=== PATIENT | female | born 1970 | race Caucasian/White ===

== ENCOUNTER 2017-04-20 14:32 | Emergency (ER) | payer BC ==
[~2017-04-20] VITALS: Ht 162.6 cm; Wt 122.5 kg
--- OUTSIDE RECORDS SUMMARY | 2017-04-20 14:37 | External Medical Summary Rpt | CCD ---
Author Author , BOOM NUR Address Unknown Phone [email or web address] Purpose Continuity of Care Document - 01-31-2017 through 2016 Results Labs Lab Lab Date Result Refere Interp Status Commen Order Detail nces retati t Range on Bacteria Ur Cult (04-11-2017 15:44) Bacteri [id number] complet a XXX 017 07 ed Anaerob 15:44 Escheri e+Aerob edith e Cult coli (organi sm) SCT ECOL ESCHERI EDITH COLI L CC XXX NOTAP complet VC-aCnc 017 NOT ed 15:44 APPLICA BLE L SPECIME URNG complet N 017 STERLING ed CONTAIN 15:44 TOP ER COLLECT INFO: ION TUBE FOR URINE L Hgb A1c MFr Bld (01-31-2017 13:59) Hgb A1c 5.8 % 4.7-6.0 complet MFr 017 ed Bld 13:59 TSH SerPl DL<=0.005 mIU/L-aCnc (01-31-2017 13:59) TSH 1.39 0.4-4.2 complet SerPl 017 uIU/mL ed DL<=0.0 13:59 05 mIU/L-a Cnc
--- OUTSIDE RECORDS SUMMARY | 2017-04-20 14:37 | External Medical Summary Rpt | CCD ---
Author Author , BOOM NUR Address Unknown Phone [email or web address] Purpose Continuity of Care Document - 01-31-2017 through 2016 Results Labs Lab Lab Date Result Refere Interp Status Commen Order Detail nces retati t Range on Bacteria Ur Cult (04-11-2017 15:44) Bacteri [id number] complet a XXX 017 07 ed Anaerob [...]
--- OUTSIDE RECORDS SUMMARY | 2017-04-20 14:38 | External Medical Summary Rpt | CCD ---
Author Author [employer] Organization [employer] Address Unknown Phone Unavailable Purpose Continuity of Care Document - through 2016
--- OUTSIDE RECORDS SUMMARY | 2017-04-20 14:38 | External Medical Summary Rpt | CCD ---
Author Author , BOOM NUR Address Unknown Phone [email or web address] Immunization Name Date Rout CVX Reac Dose Comm Prov Is Faci e tion ent ider Refu lity Give sed n Infl 11-0 Intr 150 0.5 Hist [facility] No [facility] uenz 3-20 amus mL oric 1 1 a 17 cula al Quad r Info Inj rmat ion - Sour ce Unsp ecif ied
--- OUTSIDE RECORDS SUMMARY | 2017-04-20 14:38 | External Medical Summary Rpt | CCD ---
Author Author , BOOM NUR Address Unknown Phone [email or web address] Immunization Name Date Rout CVX Reac Dose Comm Prov Is Faci e tion ent ider Refu lity Give sed n Infl 11-0 Intr 150 0.5 Hist [facility] No [facility] uenz 3-20 amus mL oric 1 1 a 17 cula al Quad r Info Inj rmat ion - Sour ce Unsp ecif ied
--- OUTSIDE RECORDS SUMMARY | 2017-04-20 14:38 | External Medical Summary Rpt ---
Author Author BOOM Vasquez, [employer] Organization [employer] Address Unknown Phone Unavailable
--- NOTE | 2017-04-20 15:05 | Urgent Treatment Center Report ---
History of Present Issue Date/Time Seen by Provider 04/20/17 1503 Visit Reason Pt arrived:Walked Presenting Problem:PT C/O COUGH, ACHES, CHILLS Location if Accident: Onset of symptoms date/time:/ or onset unknown for:MEDICAL HX UNKNOWN Have you (or family members/close friends) recently traveled outside the [place]? N If Yes, where/when: Have you had exposure to infectious disease within the past month? TB? Other? Specify: Source patient, RN notes reviewed Exam Limitations no limitations Comment 47-year-old female presents today for body aches, chills, cough, chest tightness and pain in the back of the neck for a few days. ALLERGIES Coded Allergies: MDX - No Known Allergies - Nka (NO KNOWN ALLERGIES - NKA) (Mild, 07/17/14) History Medical History General CAD? No Angina: No CA: No Hypertension? No Hyperlipidemia? No CHF? No DVT? No PE? No COPD? No Asthma? No Anemia? No GERD? No Gastric ulcers? No GI Bleed? No Hernia? No Thyroid Problems? No Hypothyroidism? No CVA? No Seizures? No Diabetes? No Renal Insuffiency? No UTI? No Stones? No BPH? No GB Disease: No Nephritic Syndrome? No Asplenia? No Hepatitis? No Sickle Cell Disease? No Arthritis? No Migraines? No Cataracts? No Glaucoma? No MRSA? No HIV? No TB? No Anxiety? No Depression? No Cancer? No More? No Immunization HX DT/Tetanus [id number] Surgical Hx Previous Surgery?Y HYSTERECTOMY Social History Smoking Hx Smoker: Current Every Day Smoker Tobacco: Yes Type Cigarettes Packs/day < 1 Pack Alcohol Alcohol: No Review of Systems All Other Systems Reviewed and Negative Constitutional see HPI Respiratory see HPI, cough Physical Exam Vital Signs Vital Signs Date Time Temp Pulse Resp B/P Pulse O2 O2 Flow FiO2 Ox Delivery Rate 04/20 1450 98.0 95 20 154/98 95 - WBC >12,000 or <4,000 or 10% bands? 2 or more SIRS Criteria Met? B/P:154/98 MAP:116 Creatinine >2.0? UA output<0.5ml/kg/hr for 2 hrs? Platelet count >100,000? Lactate >2.0mmol/1? INR >1.2 or PTT > than 60 sec? Evidence of Organ Dysfunction? Provider documented clinical suspician of infection? Sepsis Criteria Count: 2 Sepsis Risk: General Appearance normal appearance, WD/WN, no apparent distress Eye Exam - bilateral eye normal exam, bilateral eye PERRL, bilateral eye EOMI Ear, Nose, Throat hearing grossly normal, normal ENT inspection, normal pharynx Neck normal inspection, full range of motion Respiratory Status Yes: trachea midline, chest symmetrical, non tender chest. No: respiratory distress. Lung Sounds bilateral: normal breath sounds, lungs clear. Cardiovascular normal exam, regular rate/rhythm Neurologic alert, normal exam, oriented x 3 Medical Decision Making LABS/Meds/Orders Pt receiving controlled substance in ED? No Results/Orders Laboratory Tests 04/20/17 1530: Sodium 137, Potassium 4.1, Chloride 102, Carbon Dioxide 25, BUN 9, Creatinine 0.7, Estimated Creat Clear 192, Estimated GFR (MDRD) 90, Glucose 96, Calcium 8.8 , Total Bilirubin 0.4, AST 12 L, ALT 20, Alkaline Phosphatase 97, Creatine Kinase 73, CK-MB (CK-2) Rel Index 0.7, CK and CKMB Interp 0.5, Troponin I < 0.02 , Total Protein 6.9, Albumin 3.4, Globulin 3.5 H, Albumin/Globulin Ratio 1.0 L , WBC 13.6 H, RBC 4.81, Hgb 14.0, Hct 43.5, MCV 90.4, RDW 13.0, Plt Count 318, MPV 7.1 L, Gran % 73.3, Gran # 9.9 H, Lymphocytes % 14.9, Monocytes % 3.9, Eosinophils % 7.4, Basophils % 0.4, Lymphocytes # 2.0, Monocytes # 0.5, Eosinophils # 1.0 H, Basophils # 0.1, PUBS MCHC 32.3, MCH 29.2 Orders Procedure Date/time Status ELECTROCARDIOGRAM REQUEST 04/20 1457 Active CBC WITH AUTO DIFF 04/20 1457 Complete CARDIAC ENZYMES 04/20 1457 Complete CHEM 12 PROFILE 04/20 1457 Complete UTC STREP SCREEN 04/20 1446 Active UTC FLU A,B 04/20 1446 Active 12 LEAD EKG-BESSON (INITIAL) 04/20 UNK Active XRAY/CT/US XRAY/CT/US XRAY chest XR interpretation by reviewed by me Xray Results no infiltrates Departure Departure Time of Disposition 1631 Disposition DC Home or Self Care(routine) Clinical Impression Primary Impression: Acute bronchitis Qualifiers: Bronchitis organism: other organism Qualified Code: J20.8 - Acute bronchitis due to other specified organisms Condition STABLE Patient Instructions Acute Bronchitis Additional Instructions Antibiotics as ordered See PCP this week His symptoms worsen or do not improve return or be seen in the ER Discharge Counseling Counseled pt/family regarding diagnosis, test results, medications/RX, home care, follow up needs Prescriptions Current Visit Scripts Azithromycin (Zithromax) 250 MG PO DAILY #6 TAB USE DIRECTED. at 1631
[2017-04-20 16:03] LABS: LYMPH % 14.9 % (10-50.0)
--- NOTE | 2017-04-20 16:20 | RADIOLOGY REPORT PS360 ---
CHEST(2 VIEWS-NOT PORTABLE) HISTORY: cough ORDERING PHYSICIAN: Simran Bean PATIENT AGE: 47 years COMPARISON: None available FINDINGS: The cardiomediastinal silhouette and pulmonary vascularity are within normal limits. There is coarsening of the bronchovascular markings which may be seen with bronchitis/peribronchial inflammatory change. No lobar consolidation or collapse. There are some minimal atelectatic changes in the right middle lobe. No acute bony anomalies. IMPRESSION: Bronchitis/peribronchial inflammatory changes with right middle lobe atelectasis
[2017-04-20 16:28] LABS: BUN 9 mg/dL (7-18)
[2017-04-20 16:30] LABS: GFR (ESTIMATED) 90 ML/MIN (59-)
[2017-04-20] MEDS ORDERED: ZITHROMAX Z-PA250 M2 PO (16:32)
[2017-04-20 16:42] VITALS: BP 137/82
[2017-04-23 09:58] LABS: UTC STREP SCREEN NOT DETECTED (NOTDETECTED)
== END 2017-04-20 16:43 | disposition home or self-care (01) ==
LOC: UTC 14:32
PROVIDERS: Nurse Practitioner Family
DX: J20.8 Acute bronchitis due to other specified organisms (principal); F17.210 Nicotine dependence, cigarettes, uncomplicated